=== PATIENT | female | born 2000 | race Caucasian/White ===

== ENCOUNTER 2021-08-21 14:45 | Outpatient (CLI) | payer BC ==
--- NOTE | 2021-08-21 17:48 | XRAY Report ---
PROCEDURE: Shoulder 2 View RT INDICATIONS: OTHER SPRAIN OF RIGHT SHOULDER TECHNIQUE: 2 views of the shoulder were acquired. COMPARISON: None. FINDINGS: Bones: No fractures or dislocations. No suspicious bony lesions. Visualized ribs appear intact. Soft tissues: No suspicious soft tissue calcifications. The visualized lung demonstrates a normal a ppearance. IMPRESSION: Normal right shoulder plain films. If it would be helpful for clinical management decision making, please consider a dedicated, schedule d shoulder MRI for further evaluation (assuming that there is no contraindication). Reviewed by: Buddy Diaz MD on 08/21/2021 4:47 PM JAZMINE Approved by: Buddy Diaz MD on 08/21/2021 4:47 PM JAZMINE Station ID: [id number]
== END 2021-08-21 14:46 | disposition home or self-care (01) ==
LOC: DI 14:45
PROVIDERS: ATTEND Nurse Practitioner
DX: S43.491A Other sprain of right shoulder joint, initial encounter (principal)

== ENCOUNTER 2023-04-22 23:00 | Emergency (ER) | payer OTHER, BC ==
[2023-04-23] MEDS: HYDROcod/ACETAM 5/325 MG TABLET PO STA (00:24)
[2023-04-23] MEDS: ONDANSETRON ODT 4 MG TABLET TL STA (00:25)
[2023-04-23] MEDS: KETOROLAC 60 MG/2 ML VIAL IM STA (00:27)
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
[2023-04-23 01:20] VITALS: BP 108/76; O2SAT 99
== END 2023-04-23 01:18 | disposition home or self-care (01) ==
LOC: ED 23:00
DX: S09.90XA Unspecified injury of head, initial encounter (principal); W22.8XXA Striking against or struck by other objects, initial encounter
CPT/HCPCS: 96372; 99283; A9270; Q0162